=== PATIENT | female | born 1930 | race Caucasian/White ===

== ENCOUNTER 2016-10-18 00:20 | Inpatient (IN) | payer OTHER, MEDICARE ==
[~2016-10-18] VITALS: Ht 142.2 cm; Wt 44.4 kg
[~2016-10-18 00:20] MED LIST: cefTRIAXone 1GM/50ML D5W 50 ML IV SCH
[2016-10-18] MEDS ORDERED: SODIUM CHLORIDE 0.9% 500 ML IVB ONE (00:31)
[2016-10-18 01:03] LABS: Basophils # (auto) 0 uL; Basophils % (auto) 0.1 % (0.0-2.0); Eosinophils # (auto) 0 uL; Eosinophils % (auto) 0.4 % (0.0-7.0); Hematocrit 27.6 % (36.0-46.0); Hemoglobin 9.2 g/dL (12.2-16.2); Lymphocytes # (auto) 0.3 uL; Lymphocytes % (auto) 7.7 % (10.0-50.0); Mean Corpuscular Hemoglobin 31.1 pg (28.0-32.0); Mean Corpuscular Hgb Conc. 33.4 g/dL (32.0-36.0); Mean Corpuscular Volume 93.3 fL (80.0-100.0); Mean Platelet Volume 8.3 fL (7.4-10.4); Monocytes # (auto) 0.2 uL; Monocytes % (auto) 4.5 % (0.0-12.0); Neutrophils # (auto) 3.9 uL; Neutrophils % (auto) 87.3 % (37.0-80.0); Platelet Count (auto) 122 10^3/uL (140-450); White Blood Cell 4.5 10^3/uL (4.4-10.8)
[2016-10-18 01:13] LABS: INR 1.1 (0.9-1.15); Partial Thromboplastin Time 24.2 sec (22.64-33.71); Prothrombin Time 11.3 sec (9.37-12.3)
[2016-10-18 01:28] LABS: Albumin 3.3 g/dL (3.4-5.0); Anion Gap 12 (5-15); Aspartate Aminotransferase 11 U/L (15-37); BUN/Creatinine Ratio 16.7; Blood Urea Nitrogen 13 mg/dL (7-18); Calcium 8.3 mg/dL (8.5-10.1); Carbon Dioxide 25 mmol/L (21-32); Chloride 95 mmol/L (98-107); GFR African American 90 mL/min; GFR Non-African American 75 mL/min; Glucose 115 mg/dL (74-106); Magnesium 1.9 mg/dL (1.6-2.6); Sodium 132 mmol/L (136-145)
[2016-10-18 01:33] LABS: Alkaline Phosphatase 121 U/L (45-117); Bilirubin, Total 0.5 mg/dL (0.2-1.0); Total Protein 6.4 g/dL (6.4-8.2)
[2016-10-18 02:50] LABS: Urine Bilirubin Negative (Negative); Urine Blood Negative /uL (Negative); Urine Color Yellow (Yellow); Urine Glucose Normal (Normal); Urine Ketone Negative (Negative); Urine Mucus FEW (None Seen); Urine RBC 1 /hpf (0 - 4); Urine Squamous Epithelial Cell FEW /hpf (<5); Urine Urobilinogen Normal (Negative)
[2016-10-18 02:51] LABS: Urine Nitrite POSITIVE (Negative)
[2016-10-18] MEDS ORDERED: cefTRIAXone 1GM/50ML D5W 50 ML IV ONE (04:45)
[2016-10-18] MEDS ORDERED: HYDROcodone-ACET 5/325MG TAB PO PRN (06:45)
[2016-10-18] MEDS ORDERED: ACETAMINOPHEN 325 MG TAB PO PRN (06:45)
[2016-10-18] MEDS ORDERED: ONDANSETRON HCL 4 MG/2 ML VIAL IV PRN (06:45)
[2016-10-18] MEDS ORDERED: PPN PER PHARMACY 0 ML IV SCH (06:45)
[2016-10-18 07:55] LABS: Phosphorus 3.5 mg/dL (2.5-4.90)
[2016-10-18 08:42] VITALS: BP 138/88
[2016-10-18] MEDS ORDERED: ENOXAPARIN SOD 30 MG/0.3 ML SYRINGE SC SCH (10:00)
[2016-10-18] MEDS ORDERED: PANTOPRAZOLE SODIUM 40 MG/10 ML VIAL IV SCH (10:00)
[2016-10-18 15:30] VITALS: BP 138/88
[2016-10-18] MEDS ORDERED: PPN PER PHARMACY IV NR ×11 (20:00)
[2016-10-19] MEDS ORDERED: ACCU-CHEK COMFORT CURVE STRIP VI SCH
[2016-10-19] MEDS ORDERED: InsuLIN REG 1unit/0.01ml Soln (100units/ml) SC SCH
[2016-10-19] MEDS ORDERED: DEXTROSE (50%) 50ML SYRG IV SCH
== END 2016-10-18 16:30 | disposition home or self-care (01) | DRG 689 ==
LOC: EDBD 00:20 → ER 00:25 → OVERFLOW 00:26 → EAST 08:13 → WEST WING 10:49
PROVIDERS: ADMIT Internal Medicine; ATTEND Internal Medicine Geriatric Medicine
PROC: 02HV33Z Insertion of Infusion Device into Superior Vena Cava, Percutaneous Approach (ICD-10-PCS; principal; 2016-10-18)
DX: N39.0 Urinary tract infection, site not specified (principal); G93.41 Metabolic encephalopathy; S06.5X0A Traumatic subdural hemorrhage without loss of consciousness, initial encounter; E87.1 Hypo-osmolality and hyponatremia; E44.0 Moderate protein-calorie malnutrition; R64 Cachexia; D64.9 Anemia, unspecified; G93.89 Other specified disorders of brain; Z86.73 Personal history of transient ischemic attack (TIA), and cerebral infarction without residual deficits; Z68.21 Body mass index [BMI] 21.0-21.9, adult
CPT/HCPCS: 36415; 70450; 71010; 80053; 80320; 81001; 82040; 82962; 83605; 83735; 84100; 84478; 84484; 85025; 85610; 85730; 87040; 87086; 93005; 96361; 96365; 96366; J0696; J1815; J7131

== ENCOUNTER 2018-01-31 10:18 | Emergency (ER) | payer OTHER ==
[~2018-01-31] VITALS: Ht 152.4 cm; Wt 43.5 kg
[2018-01-31 12:19] LABS: Basophils # (auto) 0.1 uL; Basophils % (auto) 0.9 % (0.0-2.0); Eosinophils # (auto) 0 uL; Eosinophils % (auto) 0.6 % (0.0-7.0); Hematocrit 33.9 % (36.0-46.0); Hemoglobin 11.5 g/dL (12.2-16.2); Lymphocytes # (auto) 0.7 uL; Lymphocytes % (auto) 9.4 % (10.0-50.0); Mean Corpuscular Hemoglobin 31.5 pg (28.0-32.0); Mean Corpuscular Volume 92.4 fL (80.0-100.0); Monocytes # (auto) 0.3 uL; Monocytes % (auto) 3.9 % (0.0-12.0); Neutrophils # (auto) 6.2 uL; Neutrophils % (auto) 85.2 % (37.0-80.0); Nucleated Red Blood Cells % 0.1 %; Platelet Count (auto) 189 10^3/uL (140-450); Red Blood Cells 3.67 10^6/uL (4.0-5.20); Red Cell Distribution Width 14.3 % (11.8-14.3); White Blood Cell 7.3 10^3/uL (4.4-10.8)
[2018-01-31 12:40] LABS: Albumin 3.7 g/dL (3.4-5.0); BUN/Creatinine Ratio 16.2; Bilirubin, Total 0.8 mg/dL (0.2-1.0); Calcium 8.8 mg/dL (8.5-10.1); Potassium 4.5 mmol/L (3.5-5.1); Total Protein 7.7 g/dL (6.4-8.2)
[2018-01-31] MEDS ORDERED: SODIUM CHLORIDE 0.9% 1,000 ML IV ONE (13:33)
[2018-01-31 14:36] LABS: Urine Bacteria NONE SEEN /hpf (None Seen); Urine Blood Negative /uL (Negative); Urine Hyaline Cast FEW /lpf (0 - 2); Urine Mucus FEW (None Seen); Urine Specific Gravity 1.014 (1.001-1.035); Urine WBC 1 /hpf (0 - 5)
[2018-01-31 14:53] LABS: Magnesium 2.2 mg/dL (1.6-2.6)
[2018-01-31 16:14] VITALS: BP 148/77
== END 2018-01-31 17:29 | disposition home or self-care (01) ==
LOC: ER 10:24
DX: R41.82 Altered mental status, unspecified (principal); I62.03 Nontraumatic chronic subdural hemorrhage; Z87.440 Personal history of urinary (tract) infections; Z86.73 Personal history of transient ischemic attack (TIA), and cerebral infarction without residual deficits
CPT/HCPCS: 36415; 51702; 71045; 80053; 81001; 83735; 84484; 85025; 93005; 99285; J7030